=== PATIENT | male | born 1960 | race Caucasian/White ===

== ENCOUNTER 2018-08-12 00:49 | Emergency (ER) | payer OTHER ==
[~2018-08-12] VITALS: Ht 175.3 cm; Wt 80.7 kg
--- NOTE | 2018-08-12 00:55 | NUR ---
PT BIB SELF. COMP OF HAVING LOWER EXTREMITY EDEMA THAT STARTED A FEW DAYS AGO. NO SOB NOTED. PT AMBULATORY W.STEADY GAIT. AWAITING MD SCHMITT
[2018-08-12 01:51] LABS: BASOPHILS % (AUTO) 0.6 % (0.0-2.0); EOSINOPHILS % (AUTO) 6.3 % (0.0-6.0); HEMATOCRIT 42 % (39-51); HEMOGLOBIN 14.7 g/dL (13.5-17.5); LYMPHOCYTES # (AUTO) 2.4 /CMM (0.8-4.8); LYMPHOCYTES % (AUTO) 30.7 % (20.0-44.0); MEAN CORPUSCULAR HGB CONC 35 g/dl (31.0-36.0); MEAN CORPUSCULAR VOLUME 96 fL (80-96); MONOCYTES # (AUTO) 0.7 /CMM (0.1-1.30); MONOCYTES % (AUTO) 9.5 % (2.0-12.0); NEUTROPHILS # (AUTO) 4.1 /CMM (1.8-8.9); NEUTROPHILS % (AUTO) 52.9 % (43.0-81.0); PLATELET COUNT (AUTO) 205 /CMM (150-450); RED BLOOD CELL COUNT(AUTO) 4.42 MIL/uL (4.5-6.0); WHITE BLOOD COUNT (AUTO) 7.7 K/uL (4.3-11.0)
[2018-08-12 02:01] LABS: CALCIUM, SERUM 8.8 mg/dL (8.5-10.1); CARBON DIOXIDE 32 mmol/L (21-32); CHLORIDE 103 mmol/L (98-107); CREATININE 1.2 mg/dL (0.6-1.3); GLUCOSE 105 mg/dL (74-106); POTASSIUM 4.4 mmol/L (3.5-5.1); SODIUM SERUM 140 mmol/L (136-145); UREA NITROGEN, BLOOD 16 mg/dL (7-18)
[2018-08-12 02:14] LABS: B-TYPE NATRIURETIC PEPTIDE 51 PG/ML (0-125)
[2018-08-12 03:26] LABS: APPEARANCE,URINE CLEAR (CLEAR); BILIRUBIN,URINE NEGATIVE (NEGATIVE); BLOOD, URINE NEGATIVE Ery/uL (NEGATIVE); COLOR,URINE YELLOW (YELLOW); KETONES,URINE NEGATIVE (NEGATIVE); LEUKOCYTE ESTERASE ,URINE NEGATIVE (NEGATIVE); NITRITE, URINE NEGATIVE (NEGATIVE); PROTEIN,URINE NEGATIVE (NEGATIVE); UGLUCOSE NEGATIVE (NEGATIVE); UROBILINOGEN,URINE 0.2 EU/dL (0.2)
[2018-08-12] MEDS ORDERED: KETOROLAC TROMETHAMINE INJ 30 MG/ML VIAL ONE (03:28)
[2018-08-12] MEDS ORDERED: KETOROLAC TROMETHAMINE INJ 30 MG/ML VIAL IV ONE (03:30)
[2018-08-12] MEDS ORDERED: CEFTRIAXONE 500 MG VIAL IV ONE (04:00)
[2018-08-12] MEDS ORDERED: METRONIDAZOLE 500 MG TABLET PO ONE (04:00)
[2018-08-12] MEDS ORDERED: CEFTRIAXONE 500 MG VIAL ONE (04:00)
[2018-08-12] MEDS ORDERED: AZITHROMYCIN 250 MG TABLET PO ONE (04:00)
[2018-08-12] MEDS ORDERED: CEPHALEXIN MONOHYDRATE 500 MG CAPSULE PO ONE ×2 (04:00→04:01)
[2018-08-12] MEDS ORDERED: SULFAMETH/TRIMETH 800/160 MG 1 UDTAB TABLET PO ONE ×2 (04:00→04:01)
[2018-08-12] MEDS ORDERED: METRONIDAZOLE 500 MG TABLET ONE (04:01)
[2018-08-12] MEDS ORDERED: AZITHROMYCIN 250 MG TABLET ONE (04:04)
[2018-08-12 04:47] VITALS: BP 128/82
== END 2018-08-12 04:50 | disposition home or self-care (01) ==
LOC: ER 00:49
DX: L03.116 Cellulitis of left lower limb (principal); Z20.2 Contact with and (suspected) exposure to infections with a predominantly sexual mode of transmission; E78.5 Hyperlipidemia, unspecified; Z60.2 Problems related to living alone
CPT/HCPCS: 36415; 71045; 80048; 81001; 83880; 84484; 85025; 85730; 87491; 87591; 93005; 93970; 96365; 96375; 99284; A4216; A4606; J0696; J1885; Z7610; 81000-TC; J7060